=== PATIENT | male | born 1975 | race Caucasian/White ===

== ENCOUNTER 2021-02-10 15:07 | Outpatient (CLI) | payer OTHER, SELFPAY ==
--- NOTE | 2021-02-10 15:14 | XR_ITS ---
WS: [id number] Left rib detail, 2 views, 02/10/2021 Clinical Data: ATYPICAL CHEST PAIN Comparison: None. Findings: No rib fractures are seen. There is no subcutaneous emphysema or pneumothorax. There are small orthop edic anchors in the left glenoid rim. XR/XR ribs LT 2V* [id number] Impression: Negative left rib detail.
--- NOTE | 2021-02-10 15:14 | XR_ITS ---
WS: [id number] Chest 2 views, 02/10/2021 Clinical Data: ATYPICAL CHEST PAIN Comparison: None. Findings: No nodules, masses or effusions are seen. The heart is normal. The pulmonary vascularity is not increased. No pneumonia or pneumothorax is seen. There are small orthopedic anchors in the left glenoid rim. XR/XR chest 2V* [id number] Impression: Negative chest.
== END 2021-02-10 15:08 | disposition home or self-care (01) ==
PROVIDERS: PCP Family Medicine; Visit Provider Family Medicine
DX: R07.89 Other chest pain (principal)
CPT/HCPCS: 71046; 71100

== ENCOUNTER → 2025-02-10 08:01 | Outpatient (BNVA) | payer OTHER, SELFPAY | PROVIDERS: PCP Family Medicine; Visit Provider Student in an Organized Health Care Education/Training Program | DX: G56.03 Carpal tunnel syndrome, bilateral upper limbs (principal); G56.21 Lesion of ulnar nerve, right upper limb; M77.8 Other enthesopathies, not elsewhere classified | CPT/HCPCS: 73130 ==

== ENCOUNTER 2025-02-20 08:27 | Day surgery (SDC) | payer OTHER, SELFPAY ==
[2025-02-20] VITALS (13 sets, daily range): BP systolic 93–156; BP diastolic 63–84; PULSE 65–84; RESP 12–18; TEMP 36.2–36.6; O2SAT 94–98; BMI 29.0
--- NOTE | 2025-02-20 08:59 | W.PM.OPSUD ---
Surgery/Procedure H&P Update DATE OF PROCEDURE: February 20, 2025 DATE H&P PERFORMED: 02/10/25 H&P UPDATE INFORMATION: I have reviewed H&P completed within last 30 days, I have examined patient prior to procedure and No changes to prior documentation PREOP DIAGNOSIS: Right carpal tunnel syndrome, right cubital tunnel syndrome PRIMARY INDICATION FOR PROCEDURE: Right carpal tunnel syndrome, right cubital tunnel syndrome PLANNED PROCEDURE: Operation Date: 02/20/25 09:50 Proposed Procedures p RIGHT Carpal Tunnel Release(Right) - Jose Garner DO s RIGHT Cubital Tunnel Release With POSSIBLE Ulnar Nerve Decompression(Right) - Jose Garner DO
[2025-02-20] MEDS: acetaminophen 1,000 MG/100 ML PIGGYBACK 400 MG IV (09:02)
--- NOTE | 2025-02-20 09:40 | ANES.PREANE2 ---
Pre-Anesthetic Assessment Height/Weight: Height 5 ft 9 in Weight 197 lb Temp Pulse Resp BP Pulse Ox O2 Del Method O2 Flow Rate 97.9 F 69 16 120/74 98 Nasal Cannula 2 02/20/25 08:46 02/20/25 09:37 02/20/25 09:37 02/20/25 09:37 02/20/25 09:37 02/20/25 09:37 02/20/25 09:37 Preop Diagnosis: Right carpal tunnel syndrome, right cubital tunnel syndrome Operation Date: 02/20/25 09:50 Proposed Procedures p RIGHT Carpal Tunnel Release(Right) - Jose Sampson, DO s RIGHT Cubital Tunnel Release With POSSIBLE Ulnar Nerve Decompression(Right) - Jose Pascual, DO Was Beta Darius taken within 24 hours: N/A Was Clonidine taken within 24 hours: N/A Last intake: Intake Last Liquid Date 02/19/25 Last Liquid Time 21:00 Last Solid Date 02/19/25 Last Solid Time 17:30 Social No alcohol and No tobacco Exam alert, oriented x 3, clear to auscultation bilaterally and regular rate & rhythm Airway Submandibular: within normal limits Cervical ROM: within normal limits Mallampati: Class I Dentition: full Anesthetic Plan ASA status: 1 Anesthesia: General and Choice Other: No prior issues with anesthesia other than being told they had to give him Narcan following a general anesthetic due to getting too much narcotic N.p.o. since yesterday evening Denies any cardiac or pulmonary issues Does not take any medications at baseline METs greater than 4 Plan for peripheral nerve block Medications/Allergies Allergies Allergy/AdvReac Type Severity Reaction Status Date / Time No Known Allergies Allergy Verified 02/10/25 08:03 Current Medications Generic Name Dose Route Start Last Admin Trade Name Peteq PRN Reason Stop Dose Admin Sodium Chloride 1,000 mls @ 30 mls/hr 02/20/25 08:30 02/20/25 09:01 Sodium Chloride 0.9% IV 02/21/25 08:29 30 mls/hr .Q24H SEUN Administration PFSH Anesthesia Social History Smoking and tobacco/nicotine status: never used tobacco/nicotine
--- NOTE | 2025-02-20 09:47 | ANES.PROC ---
Anesthesia Procedures Procedure/Date: 02/20/25 Nerve Block ^: Nerve Block 1: Main Anesthesia: other (100mcg fentanyl and 2mg versed) Time Out Performed: Yes Consent: requested by attending/covering physician and from patient Laterality: Right Nerve block location: supraclavicular Anesthesia monitors applied: pulse oximetry, EKG, BP cuff and oxygen Nerve block position: supine Anesthetic Used: ropivicaine 0.5% Amount of anesthesia used (mL): 30 Ultrasound used to: recognize landmarks Nerve Stimulator Used?: Yes Interscalene/Femoral BLK: other needle (pjunk 4inch) Injection: neg aspiration of heme Patient Tolerated Procedure: well Complications: none Additional Comments: decadron 4mg added to block
[2025-02-20] MEDS: ceFAZolin 2,000 MG in sodium chloride 0.9% (plus) 50 ML 100 MG IV (10:01)
--- NOTE | 2025-02-20 11:46 | P.BOP_ITS ---
Date of Procedure: 02/20/2025 Surgeon: Jose Garner DO Liquor Inspector(s): None Procedure(s) performed: Right carpal tunnel release Right cubital tunnel release (ulnar nerve decompression at the elbow) Right elbow ulnar nerve transposition Findings of the procedure(s): Patient underwent carpal tunnel releases plan without issues or complications. On release of the cubital tunnel patient did have a subluxation being ulnar nerve and as a result proceeded with a right elbow ulnar nerve transposition this went well without issues or complications Marianela drain is in place family instructed postoperatively on drain removal this Sunday. Will maintain cubital splint for 10 to 14 days and then get in with OT hand therapy patient taken recovery in stable condition without any issues or complications. Estimated blood loss: 10 mL Specimen(s) removed: None Post-operative diagnosis: Right carpal tunnel syndrome, right cubital tunnel syndrome with subluxating ulnar
--- NOTE | 2025-02-20 11:46 | SUR.PHASEI ---
11:35 RECEIVED PT FROM OR STAFF. AIRWAY PATENT WITH GOOD VENTILATION. NSR ON MONITOR. GOOD ROM AND SENSATION TO FINGERS OF RIGHT HAND. RIGHT ARM ON PILLOW.
--- NOTE | 2025-02-20 11:50 | P.OP_ITS ---
Operative Report Date of procedure: February 20, 2025 Surgeon: Jose Garner DO Procedure: Procedure: Preoperative diagnosis: Right carpal tunnel syndrome Right?cubital tunnel syndrome post-op diagnosis:? 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 Patient had NCS findings consistent with this this for carpal tunnel as well as on examination patient has right ulnar nerve entrapment at the cubital tunnel.? ?On my examination in the office patient findings are consistent with this preoperative diagnosis. We had detailed discussion in offi ce about continued nonoperative intervention versus operative intervention.? Patient understands the risk benefits complications alternatives to surgical and nonsurgical treatment options.? Patient understands the risks include but not limited to make it better, make it worse, infection, permanent injury to nerve, decreased function and sensation to the hand with persistent weakness.? Given these risks patient understands and agrees to proceed with current plan.? Patient elects to proceed with a surgical intervention for right carpal tunnel release, right cubital tunnel release with possible nerve transposition. All questions answered. Procedure: Patient was seen and evaluated in the preoperative holding area.? The consent that was filled out in office was reviewed with patient. Correct extremity was then marked.? Patient was seen evaluated by the preoperative team as well as anesthesia department. patient received regional anesthesia.? Once cleared for surgery patient was then taken to the operative suite and?transported onto the operative table all bony prominences were well-padded and patient was secured to the table.? Right upper extremity was placed on an armboard.? Patient then underwent anesthesia per the anesthesia department. The Right upper extremity tourniquet was applied. Patient's Right upper extremity was then prepped and draped in standard orthopedic fashion.? This point a final timeout was performed. Patient received appropriate preop antibiotics. Esmarch tourniquet was used to exsanguinate the operative extremity and was insufflated to 250 mmHg.? I started with the carpal tunnel release first.? I made a standard open carpal tunnel release starting with the distal most extent in the palm at the Ponce's cardinal line and the incision line was made in line with the fourth ray and ended just distal to the wrist crease.? Sharp scalpel incision was made through skin and subcutaneous tissue I then utilizing self retainer then began to dissect with dissection scissors split longitudinally the palmar fascia.? Next I then utilizing my clerical assistant Radha retractors subsequently utilizing scalpel feathered through the palmaris brevis as well as through the?transverse carpal ligament distally.? Once I encountered the floor of the?transverse carpal ligament and entered into the carpal tunnel I then switched to dissection scissors.? Carefully released the distal extent of the?transverse carpal ligament to the palmar fat.? Care was to protect the recurrent branch and not injured this during this part of the case.? Next I then placed a Ambler unde rneath the?transverse carpal ligament proximally to protect the nerve in the carpal tunnel contents.? And then I subsequently under loupe magnification utilize my dissection scissors to release the?transverse carpal ligament into the antebrachial fascia under direct visualization with care to keep my scissors with a curved ulnarly away from the palmar cutaneous branch.? The?transverse carpal was then completely decompressed proximally and a Ambler was then placed both distally and proximally throughout the carpal tunnel and had complete decompression of the nerve.? The nerve did appear to have hourglass shape as it went through the carpal tunnel.? With significant irritation noted around the nerve.? No masses were noted within the contents of the carpal tunnel.? This completed the carpal tunnel release and then I subsequently irrigated the wound bed and placed a wet Ray-Hernesto into the incision for later closure. Standard curvilinear incision was made centering over the ulnar nerve between the medial epicondyle and olecranon process.? Sharp scalpel excision through skin and subcutaneous tissue was performed.? Once I encountered subcutaneous tissue I then utilized dissection scissors to spread in the path of the [facility] and care was made to protect any nerve branches throughout this case.? I then utilized a scalpel to complete my dissection directly on over to the flexor pronator mass and elevated this fat tissue directly off of the fascia.? I started my dissection of the ulnar nerve the nerve proximally.? Once identified I then utilized Littler dissection scissors and decompress the nerve completely and proximally and utilized blunt dissection to make sure there was no entrapment proximally.? Once decompressed proximally I then traced the nerve distal through Pelaez's ligament and as it entered the FCU fascia aponeurosis and completed by decompression and ulnar nerve neurolysis distally.? The nerve was completely released in situ no areas of entrapment I was able to place my finger distally and proximally with no areas entrapment along the nerve.? At this point in time by in situ release was completed I then subsequently took the elbow through range of motion and subluxation was noted over the medial epicondyle and plan for ulnar nerve?transposition?was made.? ?I thoroughly irrigated the nerve throughout the case to prevent it from drying out. Of note the ulnar nerve had significant irritation and inflammation.? Next while protecting the nerve as well as care to not injure any venous structures I then excised the intermuscular septum proximally with bipolar electrocautery.? This allowed for there to be no entrapment proximally with my?transposition.? Next I then performed my standard Z- flap into the fascia.? This created a large thick fascial band that would be sutured to secure the ulnar nerve when its been?transposed.? Once the incision was made just through the fascia I then mobilized just the fascia and freed the muscle belly off of this.? I then sequentially excised the T and Y shaped fascial bands throughout the flexor pronator mass to prevent any type of banded structure irritating the?transposition underneath.? At this point I had only soft tissue and muscle belly with which the ulnar nerve could rest.? I had to do a small excision of the muscle belly distally to create a nice trough for the nerve to lie.? At this point I then mobilized the nerve and this was?transposed into the flexor pronator insertion under the fasica flaps.? There was no evidence of kinking/tethering of the nerve.? this was significantly redundant and lax with no signs of tension or entrapment.? I then utilized a 2-0 Ethibond suture and approximated the fascia flaps that was created was then secured with horizontal interrupted mattress stitches. This created a nice sling around the nerve. I was able to place 2 fingers under the repair with no evidence of entrapment and the elbow was taken through range of motion and no areas of entrapment or k inking were noted on the nerve and the nerve was redundant relaxed in all ranges of motion.? This completed my ulnar nerve decompression of the?cubital tunnel as well as ulnar nerve?transposition.? Wound bed was then thoroughly irrigated.? Tourniquet was deflated.? Maintained exact hemostasis with bipolar electrocautery.? I did place a roberto drain to prevent hematoma formation. As result the skin was reapproximated with interrupted Vicryl subcutaneous suture 3-0.? I next utilized a running horizontal mattress stitch with 3-0 nylon.? Extremity was then cleaned and the incision was then covered with Xeroform 4 x 4's ABD Curlex and soft roll and a?cubital splint was then applied with an Steve wrap.? Patient was then awakened from anesthesia and taken to PACU in stable condition. Disposition: Patient taken to PACU in stable condition.? Patient given appropriate discharge instructions as well as pain medication.? Patient instructed on drain pull within 48 hours as well as maintain cubital splint for 10 to 14 days until seen by OT hand therapy. Patient will see me in office in 2 weeks.? pt understands? if they has any questions they can contact the office.
--- NOTE | 2025-02-20 11:52 | SUR.PHASEI ---
11:45 WARM BLANKETS APPLIED.ALERT AND RESPONSIVE TO VERBAL.
--- NOTE | 2025-02-20 12:18 | ANE.PACU2 ---
Inpatient post-anesthesia follow up: Airway intact: Yes Vital signs: Temperature 97.2 F Pulse Rate 67 Respiratory Rate 18 Blood Pressure 108/65 Pulse Oximetry 97 Oxygen Delivery Me thod Room Air Oxygen Flow Rate 2 Fraction of Inspir ed Oxygen Hydration adequate: Yes Nausea and vomiting: No Pain level: 1 Mental status: Baseline
== END 2025-02-20 12:53 | disposition home or self-care (01) ==
PROVIDERS: PCP Family Medicine; Visit Provider Student in an Organized Health Care Education/Training Program
PROC: (CPT 64721; principal; 2025-02-20 09:40)
PROC: (CPT 64718; 2025-02-20 09:40)
DX: G56.01 Carpal tunnel syndrome, right upper limb (principal); G56.21 Lesion of ulnar nerve, right upper limb
CPT/HCPCS: 64718; 64721; J0131; J0690; J1100; J1885; J2405; J2704; J7030; J9999

== ENCOUNTER 2025-03-05 06:58 | Outpatient (RCR) | payer OTHER, SELFPAY | END 2025-03-24 23:59 | disposition home or self-care (01) | LOC: SOT 06:58 | PROVIDERS: Visit Provider Student in an Organized Health Care Education/Training Program | DX: G56.01 Carpal tunnel syndrome, right upper limb (principal); G56.21 Lesion of ulnar nerve, right upper limb | CPT/HCPCS: 97110; 97165; 97530 ==

== ENCOUNTER 2025-06-12 07:29 | Day surgery (SDC) | payer OTHER, SELFPAY ==
[2025-06-12] VITALS (9 sets, daily range): BP systolic 102–134; BP diastolic 72–88; PULSE 63–75; RESP 14–18; TEMP 36.1–36.5; O2SAT 93–98
[2025-06-12] MEDS: acetaminophen 1,000 MG/100 ML PIGGYBACK 400 MG IV (08:04)
--- NOTE | 2025-06-12 08:37 | P.ANESASSM_ITS ---
Pre-Anesthetic Assessment Height/Weight: Height 5 ft 9 in Weight 196 lb Temp Pulse Resp BP Pulse Ox O2 Del Method 97.7 F 70 18 134/87 98 Room Air 06/12/25 07:40 06/12/25 07:40 06/12/25 07:40 06/12/25 07:40 06/12/25 07:40 06/12/25 07:43 Preop Diagnosis: Left carpal tunnel/cubital tunnel Operation Date: 06/12/25 09:15 Proposed Procedures p Carpal Tunnel Release(Left) - Jose Pascual, DO s Cubital Tunnel Release(Left) - Jose [place], DO s Ulnar Nerve Transposition(Left) - Jose Pascual, DO Was Beta Darius taken within 24 hours: N/A Was Clonidine taken within 24 hours: N/A Last intake: Intake Last Liquid Date 06/11/25 Last Liquid Time 22:00 Last Solid Date 06/11/25 Last Solid Time 20:00 Social No alcohol and No tobacco Exam alert, oriented x 3, clear to auscultation bilaterally and regular rate & rhythm Airway Submandibular: within normal limits Cervical ROM: within normal limits Mallampati: Class I Dentition: full Anesthetic Plan ASA status: 1 Anesthesia: Choice Other: Patient was recently with us in January for same procedure on the other side. Patient did very well Denies any cardiac or pulmonary issues NPO since yesterday evening No home meds METs greater than 4 Plan for peripheral nerve block Medications/Allergies Home Medications ?Medication ?Instructions ?Recorded ?Confirmed ?Last Taken ?Type No Known Home Medications 03/06/2505/25 Unknown History Allergies Allergy/AdvReac Type Severity Reaction Status Date / Time No Known Allergies Allergy Verified 06/10/25 12:31 Current Medications Generic Name Dose Route Start Last Admin Trade Name Freq PRN Reason Stop Dose Admin Sodium Chloride 1,000 mls @ 30 mls/hr 06/12/25 07:45 06/12/25 08:03 Sodium Chloride 0.9% IV 06/13/25 07:44 30 mls/hr .Q24H SEUN Administration PFSH Anesthesia Social History Smoking and tobacco/nicotine status: never used tobacco/nicotine
--- NOTE | 2025-06-12 08:38 | ANES.PROC ---
Anesthesia Procedures Procedure/Date: 06/12/25 Left supraclavicular nerve block for postoperative pain control Nerve Block ^: Nerve Block 1: Main Anesthesia: other (100 mcg fentanyl and 2 mg Versed) Time Out Performed: Yes Consent: requested by attending/covering physician Laterality: Left Nerve block location: supraclavicular Anesthesia monitors applied: pulse oximetry, EKG, BP cuff and oxygen Nerve block position: supine Anesthetic Used: ropivicaine 0.5% Amount of anesthesia used (mL): 30 Ultrasound used to: recognize landmarks Nerve Stimulator Used?: Yes Interscalene/Femoral BLK: other needle (pjunk 4inch) Injection: neg aspiration of heme Patient Tolerated Procedure: well Complications: none Additional Comments: Decadron 4 mg added to block
--- NOTE | 2025-06-12 08:39 | SUR.PREOP ---
Dr. Dwyer at bedside to perform left supraclavicular block. Pt placed on 2 L oxygen via nasal cannula and monitor. Sedation administered by Dr. Dwyer prior to procedure. Time out performed by Dr. Dwyer. 30 mL 0.5% ropivacaine administered without difficulty. Pt tolerated well. Pt remains on monitor. Call light within reach.
--- NOTE | 2025-06-12 09:10 | W.PM.OPSFHP ---
Same Day Surgery H&P Indication for Procedure/HPI DATE OF PROCEDURE: June 12, 2025 CHIEF COMPLAINT/INDICATIONFOR SURGICAL PROCEDURE: Left carpal tunnel syndrome, left cubital tunnel syndrome PREOP DIAGNOSIS: Left carpal tunnel/cubital tunnel PLANNED PROCEDURE: Operation Date: 06/12/25 09:15 Proposed Procedures p Carpal Tunnel Release(Left) - Jose Carver, DO s Cubital Tunnel Release(Left) - Jose Carver, DO s Ulnar Nerve Transposition(Left) - Jose Carver, DO Medications/Allergies* Home Medications ?Medication ?Instructions ?Recorded ?Confirmed ?Type No Known Home Medications 03/06/25 06/12/25 History Allergies/Adverse Reactions Allergy/AdvReac Type Severity Reaction Status Date / Time No Known Allergies Allergy Verified 06/10/25 12:31 Current Medications: Generic Name Dose Route Start Last Admin Trade Name Freq PRN Reason Stop Dose Admin Sodium Chloride 1,000 mls @ 30 mls/hr 06/12/25 07:45 06/12/25 08:03 Sodium Chloride 0.9% IV 06/13/25 07:44 30 mls/hr .Q24H SEUN Administration Pertinent History/Comorbid Conditions* Social History Smoking and tobacco/nicotine status: never used tobacco/nicotine Pertinent Exam Findings alert, oriented x 3, operative site marked and procedure specific exam findings Please refer to anesthesia for preoperative evaluation for heart and lung findings Positive Tinel's at the carpal tunnel and cubital tunnel. Recommendations Risks and benefits of procedure reviewed and Patient/family agree to proceed Surgery/Procedure today Other Plans: Patient is here today to proceed with left carpal tunnel release and left cubital tunnel release with possible nerve transposition. Patient has underwent the same procedure on the right side and had good relief of his symptoms with this and very satisfied with his results at this point time he is ready to pursue surgical intervention for the left side per stated procedure above he understands the ins and outs procedure the risk benefits complication alternative surgical nonsurgical treatment options. Understanding risk of surgery patient elects proceed with surgical invention. All questions answered at this time. Coding Level of Care Code Acute Code for Wei [id number]
[2025-06-12] MEDS: ceFAZolin 2,000 MG in sodium chloride 0.9% (plus) 50 ML 100 MG IV (09:22)
--- NOTE | 2025-06-12 10:59 | P.BOP_ITS ---
Date of Procedure: 06/12/2025 Surgeon: Jose Garner DO Wide Piece Goods Inspector(s): None Procedure(s) performed: Left carpal tunnel release Left cubital tunnel release Left elbow ulnar nerve transposition Findings of the procedure(s): Patient underwent procedure as planned without iss ues or complications. Upon evaluation of the ulnar nerve at the elbow he already had subluxation of the ulnar nerve even prior to releasing the cubital tunnel at this point in time decision was made to perform a ulnar nerve transposition which patient underwent without issues or complications has a Marianela drain in place and subsequently patient was placed in a cubital splint with a sling taken recovery in stable condition. Estimated blood loss: 10 mL Specimen(s) removed: None Post-operative diagnosis: Left carpal tunnel syndrome, left cubital tunnel syndrome and subluxating ulnar nerve
--- NOTE | 2025-06-12 11:01 | P.OP_ITS ---
Operative Report Date of procedure: June 12, 2025 Surgeon: Jose Garner DO Procedure: Preoperative diagnosis: Left carpal tunnel syndrome Left?cubital tunnel syndrome post-op diagnosis:? Left carpal tunnel syndrome and Left?cubital tunnel syndrome and subluxating ulnar nerve Post-op findings: See operative note Procedure done: Left carpal tunnel release Left?cubital tunnel release(ulnar nerve decompression) Left ulnar nerve?transposition?and neurolysis Surgeon: Jose Garner DO Estimated blood loss: 10 cc Tourniquet Time: 43 minutes IV fluids: 800 mL Complications: None Findings: See operative report narrative Condition: stable Disposition: same day Brief History: Patient is a pleasant 50-year-old Male was seen evaluated in the outpatient setting for Left ulnar nerve neuropathy at the elbow and Left carpal tunnel syndrome. Patient had NCS findings consistent with this this for carpal tunnel as well as on examination patient has Left ulnar nerve entrapment at the cubital tunnel.? ?On my examination in the office patient findings are consistent with this preoperative diagnosis. We had detailed discussion in office about continued nonoperative intervention versus operative intervention.? Patient understands the risk benefits complications alternatives to surgical and nonsurgical treatment options.? Patient understands the risks include but not limited to make it better, make it worse, infection, permanent injury to nerve, decreased function and sensation to the hand with persistent weakness.? Given these risks patient understands and agrees to proceed with current plan.? Patient elects to proceed with a surgical intervention for Left carpal tunnel release, Left cubital tunnel release with possible ulnar nerve transposition. All questions answered. Procedure: Patient was seen and evaluated in the preoperative holding area.? The consent that was filled out in office was reviewed with patient. Correct extremity was then marked.? Patient was seen evaluated by the preoperative team as well as anesthesia department. patient received regional anesthesia.? Once cleared for surgery patient was then taken to the operative suite and?transported onto the operative table all bony prominences were well-padded and patient was secured to the table.? Left upper extremity was placed on an armboard.? Patient then underwent anesthesia per the anesthesia department. The Left upper extremity tourniquet was applied. Patient's Left upper extremity was then prepped and draped in standard orthopedic fashion.? This point a final timeout was performed. Patient received appropriate preop antibiotics. Esmarch tourniquet was used to exsanguinate the operative extremity and was insufflated to 250 mmHg.? I started with the carpal tunnel release first.? I made a standard open carpal tunnel release starting with the distal most extent in the palm at the Ponce's cardinal line and the incision line was made in line with the fourth ray and ended just distal to the wrist crease.? Sharp scalpel incision was made through skin and subcutaneous tissue I then utilizing self retainer then began to dissect with dissection scissors split longitudinally the palmar fascia.? Next I then utilizing my child care assistant Radha retractors subsequently utilizing scalpel feathered through the palmaris brevis as well as through the?transverse carpal ligament distally.? Once I encountered the floor of the?transverse carpal ligament and entered into the carpal tunnel I then switched to dissection scissors.? Carefully released the distal extent of the?transverse carpal ligament to the palmar fat.? Care was to protect the recurrent branch and not injured this during this part of the case.? Next I then placed a Advance underneath the?transverse carpal ligament proximally to protect the nerve in the carpal tunnel contents.? And then I subsequently under loupe magnification utilize my dissection scissors to release the?transverse carpal ligament into th e antebrachial fascia under direct visualization with care to keep my scissors with a curved ulnarly away from the palmar cutaneous branch.? The?transverse carpal was then completely decompressed proximally and a Advance was then placed both distally and proximally throughout the carpal tunnel and had complete decompression of the nerve.? The nerve did appear to have hourglass shape as it went through the carpal tunnel.? With significant irritation noted around the nerve.? No masses were noted within the contents of the carpal tunnel.? This completed the carpal tunnel release and then I subsequently irrigated the wound bed and placed a wet Ray-Hernesto into the incision for later closure. Standard curvilinear incision was made centering over the ulnar nerve between the medial epicondyle and olecranon process.? Sharp scalpel excision through skin and subcutaneous tissue was performed.? Once I encountered subcutaneous tissue I then utilized dissection scissors to spread in the path of the [facility] and care was made to protect any nerve branches throughout this case.? I then utilized a scalpel to complete my dissection directly on over to the flexor pronator mass and elevated this fat tissue directly off of the fascia.? I started my dissection of the ulnar nerve the nerve proximally.? Once identified I then utilized Littler dissection scissors and decompress the nerve completely and proximally and utilized blunt dissection to make sure there was no entrapment proximally.? Once decompressed proximally I then traced the nerve distal through Pelaez's ligament prior to going through Pelaez's ligament patient's ulnar nerve was already subluxing over the medial epicondyle anteriorly. I then subsequently continued to traced the nerve and as it entered the FCU fascia aponeurosis and completed by decompression and ulnar nerve neurolysis distally.? The nerve was completely released in situ no areas of entrapment I was able to place my finger distally and proximally with no areas entrapment along the nerve.? At this point in time by in situ release was completed I then subsequently took the elbow through range of motion and again patient was noted to have subluxation was noted over the medial epicondyle and plan for ulnar nerve?transposition?was made.? ?I thoroughly irrigated the nerve throughout the case to prevent it from drying out. Of note the ulnar nerve had significant irritation and inflammation.? Next while protecting the nerve as well as care to not injure any venous structures I then excised the intermuscular septum proximally with bipolar electrocautery.? This allowed for there to be no entrapment proximally with my?transposition.? Next I then performed my standard Z- flap into the fascia.? This created a large thick fascial band that would be sutured to secure the ulnar nerve when its been?transposed.? Once the incision was made just through the fascia I then mobilized just the fascia and freed the muscle belly off of this.? I then sequentially excised the T and Y shaped fascial bands throughout the flexor pronator mass to prevent any type of banded structure irritating the?transposition underneath.? At this point I had only soft tissue and muscle belly with which the ulnar nerve could rest.? I had to do a small excision of the muscle belly distally to create a nice trough for the nerve to lie.? At this point I then mobilized the nerve and this was?transposed into the flexor pronator insertion under the fasica flaps.? There was no evidence of kinking/tethering of the nerve.? this was significantly redundant and lax with no signs of tension or entrapment.? I then utilized a 2-0 Ethibond suture and approximated the fascia flaps that was created was then secured with horizontal interrupted mattress stitches. This created a nice sling around the nerve. I was able to place 2 fingers under the repair with no evidence of entrapment and the elbow was taken through range of motion and no areas of entrapment or kinking were noted on the nerve and the nerve was redundant relaxed in all ranges of motion.? This completed my ulnar nerve decompression of the?cubital tunnel as well as ulnar nerve?transposition.? Wound bed was then thoroughly irrigated.? Tourniquet was deflated.? Maintained exact hemostasis with bipolar electrocautery.? I did place a roberto drain to prevent hematoma formation. As result the skin was reapproximated with interrupted Vicryl subcutaneous suture 3-0.? I next utilized a running horizontal mattress stitch with 3-0 nylon.? Extremity was then cleaned and the incision was then covered with Xeroform 4 x 4's ABD Curlex and soft roll and a?cubital splint was then applied with an Steve wrap.? Patient was then awakened from anesthesia and taken to PACU in stable condition. Disposition: Patient taken to PACU in stable condition.? Patient given appropriate discharge instructions as well as pain medication.? Patient instructed on drain pull within 48 hours as well as maintain cubital splint for 10 to 14 days until seen by OT hand therapy. Patient will see me in office in 2 weeks.? pt understands? if they has any questions they can contact the office.
--- NOTE | 2025-06-12 11:37 | ANE.PACU2 ---
Inpatient post-anesthesia follow up: Airway intact: Yes Vital signs: Temperature 97.0 F Pulse Rate 72 Respiratory Rate 18 Blood Pressure 125/80 Pulse Oximetry 95 Oxygen Delivery Me thod Room Air Oxygen Flow Rate Fraction of Inspir ed Oxygen Hydration adequate: Yes Nausea and vomiting: No Pain level: 1 Mental status: Baseline
== END 2025-06-12 11:37 | disposition home or self-care (01) ==
PROVIDERS: PCP Family Medicine; Visit Provider Student in an Organized Health Care Education/Training Program
PROC: (CPT 64721; principal; 2025-06-12 09:05)
PROC: (CPT 64718; 2025-06-12 09:05)
DX: G56.02 Carpal tunnel syndrome, left upper limb (principal); G56.22 Lesion of ulnar nerve, left upper limb
CPT/HCPCS: 64718; 64721; 64415; J0131; J0690; J1885; J2250; J2704; J3010; J7030; J9999